=== PATIENT | male | born 1960 | race Asian ===

== ENCOUNTER 2018-10-10 13:55 | Emergency (ER) | payer MEDICAID ==
[~2018-10-10] VITALS: Ht 165.1 cm; Wt 94.2 kg
[~2018-10-10 13:55] MED LIST: IBUP-1222 PO
[2018-10-10 13:59] VITALS: BP 124/80
--- NOTE | 2018-10-10 14:15 | NUR ---
pt to xr
[2018-10-10] MEDS ORDERED: DEXAMETHASONE 4 MG TABLET ONE (14:17)
[2018-10-10] MEDS ORDERED: ALBUTEROL SULFATE 2.5 MG/3 ML ONE (14:20)
[2018-10-10] MEDS ORDERED: DEXAMETHASONE 4 MG/ML, 5ML ONE (14:22)
[2018-10-10] MEDS ORDERED: DEXAMETHASONE 4 MG/ML, 1ML PO ONE (14:30)
[2018-10-10] MEDS ORDERED: ALBUTEROL SULFATE 2.5 MG/3 ML NPPB ONE (14:30)
--- NOTE | 2018-10-10 14:32 | NUR ---
pa to bedside
== END 2018-10-10 14:46 | disposition home or self-care (01) ==
LOC: ED 14:42
DX: J15.8 Pneumonia due to other specified bacteria (principal); F17.200 Nicotine dependence, unspecified, uncomplicated; M19.90 Unspecified osteoarthritis, unspecified site
CPT/HCPCS: 71046; 94640; 99283; J1100; J7613